=== PATIENT | female | born 1995 | race Caucasian/White ===

== ENCOUNTER 2016-12-21 12:57 | Emergency (ER) | payer OTHER ==
[2016-12-21 13:44] LABS: BASO % 0.2 % (0-6); EOS % 2.5 % (0-6); GRAN % 56.5 % (47-80); HEMATOCRIT 41.7 % (35.0-47.0); MEAN CELL VOLUME 94.1 fl (81-97); MEAN CORPUSCULAR HEMOGLOBIN 31.6 pg (27-33); MEAN CORPUSCULAR HGB CONC 33.6 g/dl (32-36); MEAN PLATELET VOLUME 10.9 fl (7.4-10.4); MONO % 7.8 % (0-9); PLATELET COUNT 217 K/uL (130-400); RED BLOOD COUNT 4.43 M/uL (3.80-5.40); RED CELL DISTRIBUTION WIDTH 12.1 % (11.5-14.5); URINE APPEARANCE CLOUDY; URINE BILIRUBIN NEGATIVE (NEGATIVE); URINE BLOOD NEGATIVE (NEGATIVE); URINE COLOR YELLOW; URINE GLUCOSE (UA) NEGATIVE (NEGATIVE); URINE KETONE NEGATIVE (NEGATIVE); URINE LEUKOCYTE ESTERASE NEGATIVE (NEGATIVE); URINE NITRITE NEGATIVE (NEGATIVE); URINE PROTEIN TRACE (NEGATIVE); WHITE BLOOD COUNT W/O DIFF 6.1 K/uL (4.2-12.2)
[2016-12-21 13:48] LABS: HCG,QUALITATIVE URINE NEGATIVE (NEGATIVE)
[2016-12-21 13:58] LABS: ANION GAP 9.8 (7-16); BLOOD UREA NITROGEN 10 mg/dL (7-17); CARBON DIOXIDE 25.2 mmol/L (22-30); CREATININE 0.7 mg/dL (0.52-1.04); EST GLOMERULAR FILTRATION RATE > 60 ml/min; GLUCOSE,RANDOM 95 mg/dL (70-110)
[2016-12-21 13:59] LABS: URINE AMORPHOUS SEDIMENT 2+; URINE BACTERIA 2+; URINE RBC 0 - 2 (NONE SEEN); URINE WBC 0 - 2 (0-2/hpf)
--- NOTE | 2016-12-21 14:47 | Emergency Department Record ---
History of Present Illness - General Chief Complaint: Abdominal Pain Stated Complaint: ABD PAIN Time Seen by Provider: 12/21/16 14:39 Source: Patient, RN notes reviewed Mode of Arrival: Ambulatory - History of Present Illness Initial Comments: 11 pm last night lower abd after sex Onset/Timin -: Days(s) Location: Periumbilical, Other Radiation: Back Improves With: Nothing Worsens With: Nothing Context: Other Associated Symptoms: Dysuria, Nausea - Related Data LMP Date: 12/07/16 Previous Rx's Medication Instructions Recorded Doxycycline Hyclate [Doxycycline] 100 mg PO BID #28 tab 12/21/16 Naproxen [Naprosyn] 500 mg PO Q12H #20 tab. 12/21/16 Allergies Allergy/AdvReac Type Severity Reaction Status Date / Time No Known Allergies Allergy none Unverified 12/21/16 13:15 Travel Screening - Travel/Exposure Within Last 30 Days Have you traveled within the last 30 days?: No - Travel/Exposure Within Last Year Have you traveled outside the [place] in the last year?: No - Additonal Travel Details Have you been exposed to anyone with a communicable illness?: No - Travel Symptoms Symptom Screening: None Review of Systems Reviewed: No additional complaints except as noted below Constitutional: Reports: As per HPI. Denies: Chills, Fever, Malaise, Night sweats, Weakness, Weight change Eyes: Reports: As per HPI. Denies: Eye discharge, Eye pain, Photophobia, Vision change ENT: Reports: As per HPI. Denies: Congestion, Dental pain, Ear pain, Epistaxis , Hearing loss, Throat pain Respiratory: Reports: As per HPI. Denies: Cough, Dyspnea, Hemoptysis, Stridor, Wheezes Cardiovascular: Reports: As per HPI. Denies: Arrhythmia, Chest pain, Dyspnea on exertion, Edema, Murmurs, Orthopnea, Palpitations, Paroxysmal nocturnal dyspnea, Rheumatic Fever, Syncope Endocrine: Reports: As per HPI. Denies: Fatigue, Heat or cold intolerance, Polydipsia, Polyuria Gastrointestinal: Reports: As per HPI, Abdominal pain. Denies: Constipation, Diarrhea, Hematemesis, Hematochezia, Melena, Nausea, Vomiting Genitourinary: Reports: As per HPI. Denies: Abnormal menses, Discharge, Dyspareunia, Dysuria, Frequency, Hematuria, Incontinence, Retention, Urgency Musculoskeletal: Reports: As per HPI. Denies: Arthralgia, Back pain, Gout, Joint swelling, Myalgia, Neck pain Skin: Reports: As per HPI. Denies: Bruising, Change in color, Change in hair/ nails, Lesions, Pruritus, Rash Neurological: Reports: As per HPI. Denies: Abnormal gait, Confusion, Headache, Numbness, Paresthesias, Seizure, Tingling, Tremors, Vertigo, Weakness Psychiatric: Reports: As per HPI. Denies: Anxiety, Auditory hallucinations, Depression, Homicidal thoughts, Suicidal thoughts, Visual hallucinations Hematological/Lymphatic: Reports: As per HPI. Denies: Anemia, Blood Clots, Easy bleeding, Easy bruising, Swollen glands Past Medical History - SOCIAL HISTORY Smoking Status: Former smoker Alcohol Use: Rare Drug Use: Rare Drug Use Detail:: Marijuana - RESPIRATORY Hx Respiratory Disorders: No - CARDIOVASCULAR Hx Cardio Disorders: No - NEURO Hx Neuro Disorders: No - GI Hx GI Disorders: Yes Hx Celiac Disease: Yes - Hx Genitourinary Disorders: Yes Hx UTI: Yes - ENDOCRINE Hx Endocrine Disorders: No - MUSCULOSKELETAL Hx Musculoskeletal Disorders: No - PSYCH Hx Psych Problems: Yes Hx Anxiety: Yes - HEMATOLOGY/ONCOLOGY Hx Hematology/Oncology Disorders: No Family Medical History Any Significant Family History?: No Physical Exam - General General Appearance: Alert, Oriented x3, Cooperative, No acute distress - Head Head exam: Normal inspection - Eye Eye exam: Normal appearance, PERRL Pupils: Normal accommodation - ENT ENT exam: Normal exam, Mucous membranes moist, Normal external ear exam, Normal orophraynx, TM's normal bilaterally Ear exam: Normal external inspection. negative: External canal tenderness Nasal Exam: Normal inspection. negative: Discharge, Sinus tenderness Mouth exam: Normal external inspection, Tongue normal Teeth exam: Normal inspection. negative: Dental caries Throat exam: Normal inspection. negative: Tonsillar erythema, Tonsillar exudate - Neck Neck exam: Normal inspection, Full ROM. negative: Tenderness - Respiratory Respiratory exam: Normal lung sounds bilaterally. negative: Respiratory distress - Cardiovascular Cardiovascular Exam: Regular rate, Normal rhythm, Normal heart sounds - GI/Abdominal GI/Abdominal exam: Soft, Normal bowel sounds, Tenderness (suprapubic) - Rectal Rectal exam: Deferred - exam: Cervical discharge, cervical motion tenderness, Enlarged uterus, Vaginal discharge. negative: Abnormal external exam, Adnexal mass (L), Adnexal mass (R), Adnexal tenderness (L), Adnexal tenderness (R) - Extremities Extremities exam: Normal inspection, Full ROM, Normal capillary refill. negative: Tenderness - Back Back exam: Reports: Normal inspection, Full ROM. Denies: Muscle spasm, Rash noted, Tenderness - Neurological Neurological exam: Alert, Normal gait, Oriented X3, Reflexes normal - Psychiatric Psychiatric exam: Normal affect, Normal mood - Skin Skin exam: Dry, Intact, Normal color, Warm Course Vital Signs 12/21/16 13:04 Temperature 98.2 F Pulse Rate 90 Respiratory 16 Rate Blood Pressure 116/89 Pulse Ox 98 Medical Decision Making - Data Complexity MDM Data: Labs Ordered and/or Reviewed (hg good), X-Ray Ordered and/or Reviewed (moderate amount of free fluid could be physiologic and slightly complex left ovarian cyst) - Lab Data Result diagrams: 12/21/16 13:30 12/21/16 13:30 Lab Results 12/21/16 12/21/16 12/21/16 Range/Units 13:30 13:30 13:30 WBC 6.1 (4.2-12.2) K/uL RBC 4.43 (3.80-5.40) M/uL Hgb 14.0 (11.6-16.0) gm/dl Hct 41.7 (35.0-47.0) % MCV 94.1 (81-97) fl MCH 31.6 (27-33) pg MCHC 33.6 (32-36) g/dl RDW 12.1 (11.5-14.5) % Plt Count 217 (130-400) K/uL MPV 10.9 H (7.4-10.4) fl Gran % 56.5 (47-80) % Lymphocytes % 33.0 (16-45) % Monocytes % 7.8 (0-9) % Eosinophils % 2.5 (0-6) % Basophils % 0.2 (0-6) % Sodium 139 (136-145) mmol/L Potassium 3.8 (3.5-5.1) mmol/L Chloride 104 (98-107) mmol/L Carbon Dioxide 25.2 (22-30) mmol/L Anion Gap 9.8 (7-16) BUN 10 (7-17) mg/dL Creatinine 0.7 (0.52-1.04) mg/dL Estimated GFR > 60 ml/min Random Glucose 95 (70-110) mg/dL Calcium 9.0 (8.5-10.1) mg/dL Urine Color Yellow Urine Appearance Cloudy Urine pH 8.5 (5.0-8.0) Ur Specific Taylor 1.015 (1.002-1.030) Urine Protein Trace H (NEGATIVE) Urine Glucose (UA) Negative (NEGATIVE) Urine Ketones Negative (NEGATIVE) Urine Blood Negative (NEGATIVE) Urine Nitrite Negative (NEGATIVE) Urine Bilirubin Negative (NEGATIVE) Urine Urobilinogen 1.0 (0.20 - 1.00) E.U./dL Ur Leukocyte Esterase Negative (NEGATIVE) Urine RBC 0 - 2 (NONE SEEN) Urine WBC 0 - 2 (0-2/hpf) U Non-Squamous Epi Cells 10 - 15 /hpf Amorphous Sediment 2+ Urine Bacteria 2+ Urine HCG, Qual Negative (NEGATIVE) Disposition Clinical Impression: PID (acute pelvic inflammatory disease) Ovarian cyst Qualifiers: Laterality: left Qualified Code(s): N83.202 - Unspecified ovarian cyst, left side Disposition: Home, Self-Care Condition: (1) Good Instructions: Ovarian Cyst (ED) Additional Instructions: if pain gets worse go to [facility] ED for recheck follow up with drapery counselor in 2 to 5 days Prescriptions: Doxycycline Hyclate [Doxycycline] 100 mg PO BID #28 tab Naproxen [Naprosyn] 500 mg PO Q12H #20 tab. Forms: Patient Portal Access Time of Disposition: 16:43
[2016-12-21] MEDS: KETOROLAC 30 MG/ML VIAL IVP ONE (14:56)
[2016-12-21] MEDS: SODIUM CHLORIDE 0.9% IVPB ONE (14:58)
[2016-12-21] MEDS: CEFTRIAXONE SODIUM IVPB ONE (14:58)
[2016-12-22 16:02] LABS: GC SPECIMEN TYPE Cervix (())
== END 2016-12-21 17:19 | disposition home or self-care (01) ==
LOC: ER 12:57
DX: N73.0 Acute parametritis and pelvic cellulitis (principal); N83.202 Unspecified ovarian cyst, left side; R10.33 Periumbilical pain; R11.0 Nausea
CPT/HCPCS: 99284 ×2; 96374; 96375; 85025; 80048; 81001; 81025; 76830; Q0111; J1885; J0696; 87210

== ENCOUNTER 2018-01-23 21:21 | Emergency (ER) | payer OTHER ==
[2018-01-23] MEDS ORDERED: 0.9 % SODIUM CHLORIDE 1,000 ML BAG IV ONE (21:45)
[2018-01-23] MEDS ORDERED: ONDANSETRON HCL IV 4 MG/2 ML VIAL IV ONE (21:45)
[2018-01-23 21:55] LABS: BASO % 0.3 % (0-6); EOS % 4.1 % (0-6); HEMATOCRIT 42.2 % (35.0-47.0); HEMOGLOBIN 14.3 gm/dl (11.6-16.0); LYMPH % 35.4 % (16-45); MEAN CELL VOLUME 94.8 fl (81-97); MEAN CORPUSCULAR HEMOGLOBIN 32.1 pg (27-33); MEAN CORPUSCULAR HGB CONC 33.9 g/dl (32-36); MEAN PLATELET VOLUME 10.3 fl (7.4-10.4); MONO % 6.2 % (0-9); PLATELET COUNT 250 K/uL (130-400); RED BLOOD COUNT 4.45 M/uL (3.80-5.40); RED CELL DISTRIBUTION WIDTH 12.3 % (11.5-14.5); URINE APPEARANCE CLEAR; URINE BILIRUBIN NEGATIVE (NEGATIVE); URINE BLOOD NEGATIVE (NEGATIVE); URINE COLOR YELLOW; URINE GLUCOSE (UA) NEGATIVE (NEGATIVE); URINE KETONE NEGATIVE (NEGATIVE); URINE LEUKOCYTE ESTERASE NEGATIVE (NEGATIVE); URINE NITRITE NEGATIVE (NEGATIVE); URINE PROTEIN NEGATIVE (NEGATIVE); URINE UROBILINOGEN 0.2 E.U./dL (0.20 - 1.00); WHITE BLOOD COUNT W/O DIFF 7.9 K/uL (4.2-12.2)
[2018-01-23] MEDS ORDERED: ACETAMINOPHEN 1,000 MG/100 ML BTL IVPB ONE (21:55)
--- NOTE | 2018-01-23 21:55 | Emergency Department Record ---
History of Present Illness - General Chief Complaint: Abdominal Pain Stated Complaint: RIGHT SIDE PAIN Time Seen by Provider: 01/23/18 21:37 Source: Patient Mode of Arrival: Ambulatory Limitations: No limitations - History of Present Illness Initial Comments: The patient is here due to the acute onset about 15 minutes prior to presenting to the ER of severe R flank pain. She denies any nausea, vomiting, diarrhea, fever, or dysuria. The patient also has no hx of similar issues. MD Complaint: Abdominal pain Onset/Timin -: Minutes(s) Location: R Flank, RUQ Severity: Severe Severity scale (1-10): 8 Quality: Burning Consistency: Constant, Getting worse Improves With: Nothing Worsens With: Nothing Associated Symptoms: Diarrhea - Related Data Patient : No Allergies Allergy/AdvReac Type Severity Reaction Status Date / Time No Known Allergies Allergy none Unverified 01/25/17 14:29 Travel Screening - Travel/Exposure Within Last 30 Days Have you traveled within the last 30 days?: No Review of Systems Constitutional: Denies: Chills, Fever Eyes: Denies: Eye discharge ENT: Denies: Congestion Respiratory: Denies: Cough, Dyspnea Past Medical History - SOCIAL HISTORY Smoking Status: Former smoker Alcohol Use: None Drug Use: None - RESPIRATORY Hx Respiratory Disorders: No - CARDIOVASCULAR Hx Cardio Disorders: No - NEURO Hx Neuro Disorders: No - GI Hx GI Disorders: Yes Hx Celiac Disease: Yes - Hx Genitourinary Disorders: Yes Hx UTI: Yes - ENDOCRINE Hx Endocrine Disorders: No - MUSCULOSKELETAL Hx Musculoskeletal Disorders: No - PSYCH Hx Psych Problems: Yes Hx Anxiety: Yes - HEMATOLOGY/ONCOLOGY Hx Hematology/Oncology Disorders: No Family Medical History Any Significant Family History?: No Physical Exam - General General Appearance: Alert, Oriented x3, Cooperative, Mild distress - Head Head exam: Atraumatic, Normocephalic - Eye Eye exam: Normal appearance, PERRL - Neck Neck exam: Normal inspection, Full ROM. negative: Tenderness - Respiratory Respiratory exam: Normal lung sounds bilaterally. negative: Respiratory distress - Cardiovascular Cardiovascular Exam: Regular rate, Normal rhythm, Normal heart sounds - GI/Abdominal GI/Abdominal exam: Soft, Tenderness (There is mild RUQ tenderness.). negative: Rebound, Rigid - Extremities Extremities exam: Normal inspection, Full ROM, Normal capillary refill. negative: Tenderness - Neurological Neurological exam: Alert. negative: Motor sensory deficit Course Vital Signs 01/23/18 21:34 Temperature 98.3 F Pulse Rate [ 105 H Pulse Ox Probe] Respiratory 24 Rate Blood Pressure 136/98 [Left Arm] Pulse Ox 99 - Reevaluation(s) Reevaluation #1: The patient is doing better at this time. She is resting comfortably in no distress. 01/23/18 23:09 Reevaluation #2: The patient is doing better but is still having some pain with walking and bending. The pain now is only in the R Flank. There is no nausea and vomiting. I did discuss the plan with her. Her workup has been all WNL's. The lab work and urine is all normal and her CT is basically neg also. We will provide the patient pain medicines tonight and she will need to return to the ER in the AM for a repeat exam and an US. 01/23/18 23:29 Medical Decision Making - Data Complexity MDM Data: Labs Ordered and/or Reviewed, X-Ray Ordered and/or Reviewed - Lab Data Result diagrams: 01/23/18 21:46 01/23/18 21:46 - Radiology Data Radiology results: Report reviewed (Abd CT: Neg.) Disposition Disposition: Discharge Clinical Impression: Abdominal pain Qualifiers: Abdominal location: right lower quadrant Qualified Code(s): R10.31 - Right lower quadrant pain Disposition: Home, Self-Care Condition: (2) Stable Instructions: Abdominal Pain (ED) Additional Instructions: Please use the [facility] for pain and also take Motrin or Advil. Please return to the ER in the AM for recheck and for a pelvic US. Return to the ER sooner for any increased pain, fever, or vomiting. Forms: Patient Portal Access Time of Disposition: 23:32 Quality - Quality Measures Quality Measures: N/A - Blood Pressure Screening View Details: Yes Does Patient Have Any of the Following: No Blood Pressure Classification: Normal BP Reading Systolic Measurement: 100 Diastolic Measurement: 68 Screening for High Blood Pressure: < Normal BP, F/U Not Required > [G8783]
[2018-01-23 21:56] LABS: HCG,QUALITATIVE URINE NEGATIVE (NEGATIVE)
[2018-01-23 22:08] LABS: BILIRUBIN,TOTAL < 0.20 mg/dL (0.2-1.0); BLOOD UREA NITROGEN 9 mg/dL (6-20); CREATININE 0.5 mg/dL (0.5-0.9); EST GLOMERULAR FILTRATION RATE > 60 mL/min
[2018-01-23 22:09] LABS: TOTAL PROTEIN 7.2 g/dL (6.6-8.7)
[2018-01-23 22:11] LABS: GLUCOSE,RANDOM 96 mg/dL (74-109)
[2018-01-23 22:13] LABS: ALBUMIN 4.7 g/dL (4.0-5.0); ALT/SGPT 13 U/L (<33); AST/SGOT 14 U/L (10.0-35.0)
[2018-01-23 22:14] LABS: ALKALINE PHOSPHATASE 89 U/L (35-104); BILIRUBIN,DIRECT < 0.2 mg/dL (0-0.3); LIPASE 17 U/L (13-60)
[2018-01-23] MEDS ORDERED: KETOROLAC 30 MG/ML VIAL IVP ONE (22:26)
[2018-01-23] MEDS ORDERED: HYDROMORPHONE HCL 2 MG/ML VIAL IVP ONE (23:24)
[2018-01-23] MEDS ORDERED: HYDROCODONE/APAP 5/325MG TABLET PO ONE (23:45)
--- NOTE | 2018-01-24 14:51 | CT SCAN REPORT ---
EXAM: EMERGENCY CT SCAN OF THE ABDOMEN AND PELVIS HISTORY: RIGHT FLANK PAIN AND RIGHT LOWER QUADRANT PAIN. TECHNIQUE: Axial CT scan of the abdomen and pelvis was performed without oral or IV contrast. A preliminary report was provided by [facility]. Comparison: No prior CT with which to compare. FINDINGS: No intrarenal calculi identified on either side. No hydronephrosis or hydroureter is seen on either side. As such the ureters are quite difficult to follow in their nondilated state throughout the retroperitoneum and pelvis, however, no calcification suspicious for ureteral calculus identified on either side and no bladder calculus evident. No calcified gallstones seen within the gallbladder. Evaluation of the bowel and viscera are very limited without oral or IV contrast. Given this limitation , no definite hepatic, splenic, adrenal, pancreatic, or renal mass identified. The appendix is not well seen without oral or IV contrast, but no obvious appendicitis identified. There is some fullness in the anticipated region of the right ovary. This could represent some ovarian cyst or other adnexal mass. If clinically warranted, follow-up pelvic ultrasound might be useful for further evaluation. The lung jarrell appear clear. No free intraperitoneal air or free intraperitoneal fluid identified. IMPRESSION: 1. NO DEFINITE URINARY TRACT CALCULI OR HYDRONEPHROSIS EVIDENT. 2. SOME FULLNESS IN THE REGION OF THE RIGHT OVARY QUESTIONABLY SOME FORM OF OVARIAN/ADNEXAL MASS. FOLLOW-UP PELVIC ULTRASOUND MAY BE USEFUL FOR FURTHER EVALUATION. JOB NUMBER: [id number] MTDD
== END 2018-01-24 00:02 | disposition home or self-care (01) ==
LOC: ER 21:21
DX: R10.31 Right lower quadrant pain (principal); R19.7 Diarrhea, unspecified; Z87.891 Personal history of nicotine dependence
CPT/HCPCS: 74176; 80048; 80076; 81003; 81025; 83690; 85025; 96374; 96375; 99284; J1885; J2405; J7030

== ENCOUNTER 2019-09-02 06:24 | Emergency (ER) | payer OTHER ==
[2019-09-02 06:59] LABS: ABSOLUTE NEUTROPHIL COUNT 6.91; BASO % 0.2 % (0-6); EOS % 3.9 % (0-6); GRAN % 70.7 % (47-80); HEMATOCRIT 41.6 % (35.0-47.0); HEMOGLOBIN 13.8 gm/dl (11.6-16.0); LYMPH % 17.7 % (16-45); MEAN CELL VOLUME 93.7 fl (81-97); MEAN CORPUSCULAR HEMOGLOBIN 31.1 pg (27-33); MEAN CORPUSCULAR HGB CONC 33.2 g/dl (32-36); MEAN PLATELET VOLUME 10.6 fl (7.4-10.4); MONO % 7.5 % (0-9); PLATELET COUNT 224 K/uL (130-400); RED BLOOD COUNT 4.44 M/uL (3.80-5.40); RED CELL DISTRIBUTION WIDTH 12.1 % (11.5-14.5); WHITE BLOOD COUNT W/O DIFF 9.8 K/uL (4.2-12.2)
[2019-09-02] MEDS ORDERED: 0.9 % SODIUM CHLORIDE 1,000 ML BAG IV ONE (07:12)
[2019-09-02] MEDS ORDERED: ONDANSETRON HCL IV 4 MG/2 ML VIAL IV ONE (07:12)
[2019-09-02 07:16] LABS: BLOOD UREA NITROGEN 10 mg/dL (6-20); CREATININE 0.5 mg/dL (0.5-0.9); EST GLOMERULAR FILTRATION RATE > 60 mL/min
[2019-09-02 07:19] LABS: GLUCOSE,RANDOM 107 mg/dL (74-109)
[2019-09-02 07:22] LABS: ALB/GLOB RATIO 1.9 (1.1-1.8); ALBUMIN 4.6 g/dL (4.0-5.0); ALKALINE PHOSPHATASE 88 U/L (35-104); ALT/SGPT 13 U/L (<33); AST/SGOT 19 U/L (10.0-35.0)
--- NOTE | 2019-09-02 07:26 | Emergency Department Record ---
History of Present Illness - General Chief complaint: Vomiting Stated complaint: VOMITTING Time Seen by Provider: 09/02/19 07:06 Source: Patient Mode of Arrival: Ambulatory Limitations: No limitations - History of Present Illness Initial comments: pt has been vomiting this am. she has had a sore throat for a few days. her throat feels raw. she had some blood streaking of her latter vomiting. no ap, no diarrhea. 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 MD complaint: Nausea, Vomiting, Other Onset/Timin -: Hour(s) Description of Vomiting: Blood-streaked Associated Abdominal Pain: No Consistency: Constant Improves with: Vomiting Worsens with: None Associated Symptoms: Other - Related Data Previous Rx's Medication Instructions Recorded Ondansetron [Zofran Odt] 4 mg PO Q8H #7 tab.rapdis 09/02/19 Allergies Allergy/AdvReac Type Severity Reaction Status Date / Time No Known Allergies Allergy none Unverified 01/25/17 14:29 Travel Screening - Travel/Exposure Within Last 30 Days Have you traveled within the last 30 days?: No - Travel/Exposure Within Last Year Have you traveled outside the [place] in the last year?: No - Additonal Travel Details Have you been exposed to anyone with a communicable illness?: No - Travel Symptoms Symptom Screening: None Review of Systems Reviewed: No additional complaints except as noted below Constitutional: Reports: As per HPI. Denies: Chills, Fever, Malaise, Night sweats, Weakness, Weight change Eyes: Reports: As per HPI. Denies: Eye discharge, Eye pain, Photophobia, Vision change ENT: Reports: As per HPI. Denies: Congestion, Dental pain, Ear pain, Epistaxis, Hearing loss, Throat pain Respiratory: Reports: As per HPI. Denies: Cough, Dyspnea, Hemoptysis, Stridor, Wheezes Cardiovascular: Reports: As per HPI. Denies: Arrhythmia, Chest pain, Dyspnea on exertion, Edema, Murmurs, Orthopnea, Palpitations, Paroxysmal nocturnal dyspnea, Rheumatic Fever, Syncope Endocrine: Reports: As per HPI. Denies: Fatigue, Heat or cold intolerance, Polydipsia, Polyuria Gastrointestinal: Reports: As per HPI. Denies: Abdominal pain, Constipation, Diarrhea, Hematemesis, Hematochezia, Melena, Nausea, Vomiting Genitourinary: Reports: As per HPI. Denies: Abnormal menses, Discharge, Dyspareunia, Dysuria, Frequency, Hematuria, Incontinence, Retention, Urgency Musculoskeletal: Reports: As per HPI. Denies: Arthralgia, Back pain, Gout, Joint swelling, Myalgia, Neck pain Skin: Reports: As per HPI. Denies: Bruising, Change in color, Change in hair/nails, Lesions, Pruritus, Rash Neurological: Reports: As per HPI. Denies: Abnormal gait, Confusion, Headache, Numbness, Paresthesias, Seizure, Tingling, Tremors, Vertigo, Weakness Psychiatric: Reports: As per HPI. Denies: Anxiety, Auditory hallucinations, Depression, Homicidal thoughts, Suicidal thoughts, Visual hallucinations Hematological/Lymphatic: Reports: As per HPI. Denies: Anemia, Blood Clots, Easy bleeding, Easy bruising, Swollen glands Past Medical History - SOCIAL HISTORY Smoking Status: Former smoker Alcohol Use: Occasional Drug Use: Heavy Drug Use Detail:: Marijuana - RESPIRATORY Hx Respiratory Disorders: Yes Hx Asthma: Yes - CARDIOVASCULAR Hx Cardio Disorders: No - NEURO Hx Neuro Disorders: No - GI Hx GI Disorders: Yes Hx Celiac Disease: Yes - Hx Genitourinary Disorders: Yes Hx UTI: Yes - ENDOCRINE Hx Endocrine Disorders: No - MUSCULOSKELETAL Hx Musculoskeletal Disorders: No - PSYCH Hx Psych Problems: Yes Hx Anxiety: Yes Hx Depression: Yes - HEMATOLOGY/ONCOLOGY Hx Hematology/Oncology Disorders: No Family Medical History Any Significant Family History?: No Physical Exam - General General Appearance: Alert, Oriented x3, Cooperative, No acute distress - Head Head exam: Normal inspection - Eye Eye exam: Normal appearance, PERRL, EOMI Pupils: Normal accommodation - ENT ENT exam: Normal exam, Mucous membranes dry, Normal external ear exam, Normal orophraynx Ear exam: Normal external inspection. negative: External canal tenderness Nasal Exam: Normal inspection. negative: Discharge, Sinus tenderness Mouth exam: Normal external inspection, Tongue normal Teeth exam: Normal inspection. negative: Dental caries Throat exam: Tonsillar erythema. negative: Tonsillar exudate - Neck Neck exam: Normal inspection, Full ROM. negative: Tenderness - Respiratory Respiratory exam: Normal lung sounds bilaterally. negative: Respiratory distress - Cardiovascular Cardiovascular Exam: Regular rate, Normal rhythm, Normal heart sounds - GI/Abdominal GI/Abdominal exam: Soft, Normal bowel sounds. negative: Tenderness - Rectal Rectal exam: Deferred - exam: Deferred - Extremities Extremities exam: Normal inspection, Full ROM, Normal capillary refill. negative: Tenderness - Back Back exam: Reports: Normal inspection, Full ROM. Denies: Muscle spasm, Rash noted, Tenderness - Neurological Neurological exam: Alert, CN II-XII intact, Normal gait, Oriented X3 - Psychiatric Psychiatric exam: Normal affect, Normal mood - Skin Skin exam: Dry, Intact, Normal color, Warm Course Vital Signs 09/02/19 06:34 Temperature 97.1 F L Pulse Rate [ 102 H Left] Respiratory 22 Rate Blood Pressure 124/87 [Left] Pulse Ox 100 - Reevaluation(s) Reevaluation #1: 09/02/19 09:28 pt feels much better. ct is neg Medical Decision Making - Lab Data Result diagrams: 09/02/19 06:50 09/02/19 06:50 Lab Results 09/02/19 Range/Units 06:50 WBC 9.8 (4.2-12.2) K/uL RBC 4.44 (3.80-5.40) M/uL Hgb 13.8 (11.6-16.0) gm/dl Hct 41.6 (35.0-47.0) % MCV 93.7 (81-97) fl MCH 31.1 (27-33) pg MCHC 33.2 (32-36) g/dl RDW 12.1 (11.5-14.5) % Plt Count 224 (130-400) K/uL MPV 10.6 H (7.4-10.4) fl Gran % 70.7 (47-80) % Lymphocytes % 17.7 (16-45) % Monocytes % 7.5 (0-9) % Eosinophils % 3.9 (0-6) % Basophils % 0.2 (0-6) % Absolute Neutrophils 6.91 Disposition Disposition: Discharge Clinical Impression: Nohemy-Mendenhall tear Vomiting Qualifiers: Vomiting type: unspecified Vomiting Intractability: non-intractable Nausea presence: with nausea Qualified Code(s): R11.2 - Nausea with vomiting, unspecified Disposition: Home, Self-Care Condition: (1) Good Instructions: Acute Nausea and Vomiting (ED) Additional Instructions: follow up with family doctor. return sooner if worse. push fluids Prescriptions: Ondansetron [Zofran Odt] 4 mg PO Q8H #7 tab.rapdis Forms: Patient Portal Access Quality - Quality Measures Quality Measures: N/A - Blood Pressure Screening Does Patient Have Any of the Following: No Blood Pressure Classification: Normal BP Reading Systolic Measurement: 99 Diastolic Measurement: 63 Screening for High Blood Pressure: < Normal BP, F/U Not Required > [G8783]
[2019-09-02 07:58] LABS: URINE BILIRUBIN NEGATIVE (NEGATIVE); URINE BLOOD NEGATIVE (NEGATIVE); URINE COLOR YELLOW; URINE GLUCOSE (UA) NEGATIVE (NEGATIVE); URINE KETONE TRACE (NEGATIVE); URINE LEUKOCYTE ESTERASE NEGATIVE (NEGATIVE); URINE NITRITE NEGATIVE (NEGATIVE); URINE PROTEIN NEGATIVE (NEGATIVE); URINE UROBILINOGEN 0.2 E.U./dL (0.20 - 1.00)
[2019-09-02 07:59] LABS: URINE APPEARANCE SL CLOUDY
[2019-09-02 08:03] LABS: URINE BACTERIA 2+; URINE EPITHELIAL CELLS >50 (FEW); URINE RBC NONE SEEN (NONE SEEN); URINE WBC 0 - 2 (0-2/hpf)
[2019-09-02] MEDS ORDERED: KETOROLAC 30 MG/ML VIAL IVP ONE (08:27)
--- NOTE | 2019-09-02 09:17 | CT SCAN REPORT ---
EXAMINATION: CT Neck Soft Tissues with IV Contrast EXAM DATE: 09/02/2019 9:05 AM TECHNIQUE: Standard protocol CT images of the neck were obtained with intravenous contrast. Sagittal and coronal images were reconstructed. IV Contrast: The amount and type of contrast are recorded in t he medical record. INDICATION: pain w hematemesis COMPARISON: None ENCOUNTER: Not applicable FINDINGS: No neck mass or lymphadenopathy. No airway compromise. Normal epiglottis. Lobulated mucosal thickening in right sphenoid sinus. Moderate mucosal thickening in left maxillary s inus which is developmentally smaller than the right. Mild ethmoid mucosal thickening. Visualized por tion of the brain appears unremarkable for technique. The lung apices are clear. IMPRESSION: No mass or lymphadenopathy. Dictated by: Fidencio Colmenares MD on 09/02/2019 9:10 AM. .
== END 2019-09-02 09:43 | disposition home or self-care (01) ==
LOC: ER 06:24
DX: K22.6 Gastro-esophageal laceration-hemorrhage syndrome (principal); R11.2 Nausea with vomiting, unspecified
CPT/HCPCS: 70491; 80053; 81001; 83690; 84703; 85025; 87880; 96361; 96374; 96375; 99284; J1885; J2405; J7030